=== PATIENT | male | born 1950 | race Caucasian/White ===

== ENCOUNTER 2016-08-23 09:56 | Emergency (ER) | payer OTHER ==
--- NOTE | 2016-08-23 11:23 | DIAGNOSTIC IMAGING REPORT ---
PROCEDURE: XR CHEST 1 VIEW INDICATION: CHEST PAIN TECHNIQUE: Portable AP view 11:15 a.m. COMPARISON: None. FINDINGS: Poor inspiration but lungs are clear. Borderline cardiomegaly. Mediastinum and pulmonary vessels are normal. Thorax is normal. IMPRESSION: 1. Poor inspiration 2. Borderline cardiomegaly.
--- NOTE | 2016-08-23 12:08 | ED ORDER SUMMARY ---
..... Patient: JUAN LUIS FERNANDEZ OrderSheet [facility] VisitID: [id number] [place] [address] 65y, M Registration Date/Time: 08/23/2016 ORDER SHEET Weight: 120.6 kg (stated) Allergies: No Known Drug Allergy GENERAL ORDERS: Chest 1V Urgent (10:16 08/23/2016 Cyndi Mosher) (Ack 10:27 Shashi) (11:41 DDean R.N.) Cardiac Panel Stat (10:08/23/2016 Cyndi Mosher) (Ack 10:27 Shashi) (10:47 DDean R.N.) BNP Urgent (10:08/23/2016 Cyndi Mosher) (Ack 10:27 Shashi) (10:47 DDean R.N.) D-Dimer Urgent (10:08/23/2016 Cyndi Mosher) (Ack 10:27 Shashi) (10:47 DDean R.N.) UA-Culture if indicated Urgent (10:08/23/2016 Cyndi Mosher) (Ack 10:27 Shashi) (Cancelled: Unable to Vkfkqsf20:07 DDean R.N.) TSH Urgent (10:08/23/2016 Cyndi Mosher) (Ack 10:27 Shashi) (10:47 DDean R.N.) EKG - ER Stat (10:08/23/2016 Cyndi Mosher) (Ack 10:27 Shashi) (10:37 RKaruga) MEDICATION ORDERS: Saline Lock (Solution 0.9 %) 10 mL Syringe (NOW) (15:02 08/23/2016 DDean R.N. per protocol) (15:06 DDean R.N.) IV FLUIDS: IV NS : initial bolus none -, then 1000 mL/hr for X1 (NOW) (10:15 08/23/2016 Cyndi Mosher) (Ack 10:27 DDean R.N.) (Cancelled: Other15:01 DDean R.N.) ORDER SHEET NOTES: [Electronically signed by Jillian Avila R.N. (15:07 08/23/2016)] [Electronically signed by Stanley Barlow Dr. (22:11 08/23/2016)] [Electronically locked/signed by Jillian Avila R.N. (15:07 08/23/2016)]
--- NOTE | 2016-08-23 12:08 | ED NURSING NOTES ---
Clinical Report - Nurses [facility] [address] [place] [address] 08/23/2016 10:00 Patient: JUAN LUIS FERNANDEZ TRIAGE Triage time 1012. Acuity: LEVEL 3. Chief Complaint: (pt in with irregular heart rate onset last night. denies SOB or chest pain with this. Denies dizziness). 10:12. --10:24 Jillian Avila R.N. 10:12 08/23/16. BP: 115/85. HR: 70. RR: 16. O2 saturation: 97% on room air. Temp: 98.2 F. Pain level now: 010. --10:24 Jillian Avila R.N. Weight: 120.6 kg stated. Height/Length: 76 inches Per Patient. BMI: 32.4. --10:18 Jillian Avila R.N. Medications Dustasteriot 0.5mg daily . --10:22 Jillian Avila R.N. Losartan Potassium Oral 25 mg, daily. Metoprolol Succinate ER Oral 50mg daily. Simvastatin Oral 40 mg, daily. --10:22 Jillian Avila R.N. Allergies No Known Drug Allergy. --10:20 Jillian Avila R.N. History Arrived by private vehicle. Historian: patient. Unaccompanied. This started last night. PAST MEDICAL HX: Hypertension. ( asthma in the 1970's). 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 SOCIAL HX: Never smoker. No alcohol use or drug use. --10:24 Jillian Avila R.N. Interventions ID band on patient. To treatment room. --10:24 Jillian Avila R.N. PHYSICAL ASSESSMENT 10:12. Ambulatory to room. Patient gowned. GENERAL / NEURO / PSYCH: Alert. Oriented X 4. Appears in no acute distress. HEENT: Mucous membranes are pink. RESPIRATORY: Respirations not labored. Chest nontender. CVS: Capillary refill less than 2 seconds. GI / : Abdomen soft. SKIN: Skin is warm and dry. --10:26 Jillian Avila R.N. NURSING PROGRESS NOTES 10:12. Oxygen administered. Monitoring of patient in place. Patient gowned. Head of bed elevated. Reassurance given. Patient identifiers checked. Call light placed in reach. Side rails up. Bed placed in lowest position. Patient ready for evaluation- chart flagged. --10:25 Jillian Avila R.N. 10:25. EKG time: (1025). EKG was ordered, performed by a tech and shown to the ED physician. done by RT. --10:26 Jillian Avila R.N. 10:32 08/23/2016 Site #1 started via IV in the right antecubital space with an 20g angiocath, with aseptic technique and good blood return; one attempt. Blood drawn: rainbow set. Labeled in the presence of the patient and sent to the lab. Saline lock flushed with 10 mL saline. --10:46 Jillian Avila R.N. 10:32. ( IV start and blood draw. Pt in no distress. declined blanket). --10:47 Jillian Avila R.N. <<STRICKEN ENTRY-- 10:32 08/23/2016 Started bag #1 1000 mL IV Fluids IV NS (Saline); at 1000 mL/hr over 1 hour(s) via site #1 via IV pump. --10:47 Jillian Avila R.N. --END STRIKE>> Other. --15:01 Jillian Avila R.N. 10:35 08/23/16. BP: 118/94. HR: 62. RR: 16. O2 saturation: 96% on nasal cannula at 2 liters/minute. Temp: deferred. Pain level now: 0/10. Additional comments: pt in no distress, waiting for lab resultsa. --11:35 Jillian Avila R.N. 11:10 08/23/16. BP: 135/79. HR: 64. RR: 18. O2 saturation: 95%. Temp: deferred. Pain level now: 0/10. Additional comments: pt getting anxious for lab results. declined po fluids. . --11:37 Jillian Avila R.N. 11:20. Portable chest x-ray ordered, performed and shown to the ED physician. --11:41 Jillian Avila R.N. 10:32 08/23/2016 saline lock placed at right AC with #20 angio, with 10cc NS flush * IV 10ml --15:05 Jillian Avila R.N. 12:10 08/23/2016 Site #1 removed upon discharge. Pressure dressing applied. --14:59 Jillian Avila R.N. 12:10 08/23/2016 Saline lock placed at right AC with #20 angio, with 10cc NS flush IV Discontinued: STOPPED upon discharge. --15:06 Jillian Avila R.N. DISPOSITION / DISCHARGE 12:20. Condition at departure: improved and stable. No learning barriers present. Discharge instructions provided and reviewed with the patient. Reviewed referral to a recreation supervisor. Patient verbalized understanding. Written instructions provided in Nepali. The patient was discharged home and unaccompanied at time of discharge. He left the Emergency Department ambulatory and via private vehicle. Patient driving. --14:58 Jillian Avila R.N. 12:20 08/23/16. BP: 121/69. HR: 62. RR: 18. O2 saturation: 99%. Temp: deferred. Pain level now: 0/10. --14:58 Jillian Avila R.N. Locked/Released at 08/23/2016 15:07 by Jillian Avila R.N.
--- NOTE | 2016-08-23 12:08 | ED CLINICAL REPORT ---
Clinical Report - Physicians/Mid Levels [facility] [address] [place] [address] 08/23/2016 10:00 [id number] Time Seen: 10:08; initial patient contact. Arrived- By private vehicle. Historian- patient. HISTORY OF PRESENT ILLNESS Chief Complaint: PALPITATIONS. This started yesterday and is now gone. Onset during rest. No history of caffeine use prior to onset, decongestants use prior to onset, cocaine use prior to onset or amphetamine use prior to onset. It was gradual in onset. It is described as an irregular heart beat and missing beats. Modifying factors. Not worsened by anything. Not relieved by anything. No chest pain, difficulty breathing, sweating episodes or dizziness. He has had chest discomfort. Similar symptoms previously: None. Recent medical care: The patient was seen recently in a clinic. REVIEW OF SYSTEMS No fever, chills, cough, orthopnea or calf pain. No nausea. All systems otherwise negative, except as recorded above. PAST HISTORY HTN. Medications: Losartan Potassium Oral 25 mg, daily. Metoprolol Succinate ER Oral 50mg daily. Simvastatin Oral 40 mg, daily. Dustasteriot 0.5mg daily . Allergies: No Known Drug Allergy. SOCIAL HISTORY Never smoker. No alcohol use or drug use. ADDITIONAL NOTES The nursing notes have been reviewed. PHYSICAL EXAM Vital Signs: 08/23/2016 10:12 BP: 115/85. HR: 70. RR: 16. O2 saturation: 97%. Temp: 98.2 F. Pain level now: 0/10. Have been reviewed as normal. Appearance: Alert. Oriented X3. No acute distress. Eyes: Eyes normal inspection. ENT: Pharynx normal. Neck: Normal inspection. CVS: Normal heart rate and rhythm. Heart sounds normal. Respiratory: No respiratory distress. Breath sounds normal. Abdomen: Soft and nontender. Bowel sounds normal. No organomegaly. No mass. Skin: Skin warm and dry. Normal skin color. Extremities: No calf tenderness. No lower extremity edema. Neuro: Oriented X 3. LABS, X-RAYS, AND EKG EKG: EKG time: (1025). Normal sinus rhythm. Rate: 63. Normal P waves. First-degree atrioventricular block. Normal QRS complex. Incomplete RBBB. Normal axis. Normal QT and QTc. Mild T wave inversion in lead V1. Prior EKG unavailable. The study has been interpreted contemporaneously by me. The study has been independently viewed by me. The EKG appears to be a good tracing. I agree with and confirm the computer reading of the EKG. Interpretation time: 1025. Chest X-ray: No acute disease. Mild cardiomegaly. No evidence of vascular congestion. Normal lung markings present. No infiltrate. Views: AP. Technique: good. The X-rays were independently viewed by me and interpreted contemporaneously by me. Prior films were not available for comparison. Laboratory Tests: CBC w Diff: (ARNULFO: 08/23/2016 10:32) ( MsgRcvd 08/23/2016 10:54) Final results Test Result Flag Units (Reference) WHITE BLOOD COUNT 6.3 K/uL (4.5-11.5) RED BLOOD COUNT 5.72 M/uL (4.50-5.90) HEMOGLOBIN 16.6 gm/dL (13.5-17.5) HEMATOCRIT 49.1 % (41.0-53.0) MEAN CELL VOLUME 86 fL (80-100) MEAN CORPUSCULAR HGB 29 pg (26-34) MEAN CORPUSCULAR HGB CONC 34 g/dL (31-37) RED CELL DISTRIBUTION WIDTH 13.5 % (11.6-14.8) PLATELET COUNT 218 K/uL (150-400) NEUTROPHIL % 63.7 % (50-75) LYMPH % 20.9 L % (25-40) MONO % 10.3 % (3-14) EOSINOPHIL % 4.3 H % (0-4) BASOPHIL % 0.8 % (0-2) [id number]: (ARNULFO: 08/23/2016 10:32) ( MsgRcvd 08/23/2016 11:00) Final results Test Result Flag Units (Reference) D-DIMER QUANTITATIVE < 0.27 L ug/mLFEU (0.27-0.52) The primary value of this quantitative assay relates toits negative predictive value (i.e. exclusion) of pulmonaryembolism/deep vein thrombosis/DIC.Elevated levels of d-dimer may also occur with:, age, cancer, inflammation, liver disease,post-op, infection, hematoma, coronary disease, peripheralarteriopathy, bleeding disorders and thrombolytic treatment.Results should be correlated with other clinical andradiological data.Testing Methodology: Latex Immunoassay BNP: (ARNULFO: 08/23/2016 10:32) ( [facility] 08/23/2016 11:12) Final results Test Result Flag Units (Reference) B-TYPE NATRIURETIC PEPTIDE 28.3 pg/ml (5-100) TSH: (ARNULFO: 08/23/2016 10:32) ( [facility] 08/23/2016 11:19) Final results Test Result Flag Units (Reference) THYROID STIMULATING HORMONE 1.825 uIU/mL (0.30-3.74) CHEM 13 PANEL: (ARNULFO: 08/23/2016 10:32) ( [facility] 08/23/2016 11:18) Final results Test Result Flag Units (Reference) GLUCOSE 110 mg/dL (70-110) BUN 19 H mg/dL (7-18) CREATININE 0.8 mg/dL (0.6-1.3) Estimated GFR >60 mL/min Estimated GFR- >60 mL/min Note: Persistent reduction over 3 months in eGFR<60 mL/min/1.73 m2 defines CKD. Patients with eGFR values>=60 mL/min/1.73 m2 may also have CKD if evidence ofpersistent proteinuria. Additional information may be foundat www.kidney.org. SODIUM 140 mmol/L (136-145) POTASSIUM 4.2 mmol/L (3.5-5.1) CHLORIDE 103 mmol/L (98-107) CARBON DIOXIDE 25 mmol/L (21-32) CALCIUM 9.1 mg/dL (8.5-10.1) TOTAL PROTEIN 7.8 g/dL (6.4-8.2) ALBUMIN 4.1 g/dL (3.3-5.0) BILIRUBIN, TOTAL 0.6 mg/dL (0.0-1.0) ALKALINE PHOSPHATASE 53 U/L (46-116) AST (SGOT) 22 U/L (15-37) ALT (SGPT) 46 U/L (12-78) CPK 73 U/L (24-260) MAGNESIUM 2.2 mg/dL (1.8-2.4) TROPONIN I <0.05 ng/mL (0.00-1.5) TROPONIN REFERENCE RANGE:<0.1 NEGATIVE0.1-1.5 INDETERMINANT>1.5 POSITIVE . PROGRESS AND PROCEDURES Disposition: Discharged home in good and improved condition. Condition: good. CLINICAL IMPRESSION Occasional PVC's. (1st Degree block). INSTRUCTIONS No strenuous activity until released. Avoid stimulants (such as cigarettes, coffee, cold medicines, sinus medicines, street drugs). Follow a low salt diet. Your Current Medications: CONTINUE TAKING THE FOLLOWING MEDICATIONS: Dustasteriot 0.5mg daily *. Losartan Potassium Oral : 25 mg daily. Metoprolol Succinate ER Oral : 50mg daily. Simvastatin Oral : 40 mg daily. Follow-up: Blood pressure screening was not performed during this visit because the patient has an active diagnosis of hypertension. Follow-up with: Chuck Monet MD, Cardiology, , [facility], [address] [place] [address], [facility] [address], [place] [address] Follow up in about three days. Call for an appointment. (Electronically signed by Stanley Barlow Dr. 08/23/2016 22:11)
--- NOTE | 2016-08-23 12:08 | ED CLINICAL REPORT ---
Clinical Report - Physicians/Mid Levels [facility] [address] [place] [address] 08/23/2016 10:00 [id number] Time Seen: 10:08; initial patient contact. Arrived- By private vehicle. Historian- patient. HISTORY OF PRESENT ILLNESS Chief Complaint: PALPITATIONS. This started yesterday and is now gone. Onset during rest. No history of caffeine use prior to onset, decongestants use prior to onset, cocaine use prior to onset or amphetamine use prior to onset. It was gradual in onset. It is described as an irregular heart beat and missing beats. Modifying factors. Not worsened by anything. Not relieved by anything. No chest pain, difficulty breathing, sweating episodes or dizziness. He has had chest discomfort. Similar symptoms previously: None. Recent medical care: The patient was seen recently in a clinic. REVIEW OF SYSTEMS No fever, chills, cough, orthopnea or calf pain. No nausea. All systems otherwise negative, except as recorded above. PAST HISTORY HTN. Medications: Losartan Potassium Oral 25 mg, daily. Metoprolol Succinate ER Oral 50mg daily. Simvastatin Oral 40 mg, daily. Dustasteriot 0.5mg daily . Allergies: No Known Drug Allergy. SOCIAL HISTORY Never smoker. No alcohol use or drug use. ADDITIONAL NOTES The nursing notes have been reviewed. PHYSICAL EXAM Vital Signs: 08/23/2016 10:12 BP: 115/85. HR: 70. RR: 16. O2 saturation: 97%. Temp: 98.2 F. Pain level now: 0/10. Have been reviewed as normal. Appearance: Alert. Oriented X3. No acute distress. Eyes: Eyes normal inspection. ENT: Pharynx normal. Neck: Normal inspection. CVS: Normal heart rate and rhythm. Heart sounds normal. Respiratory: No respiratory distress. Breath sounds normal. Abdomen: Soft and nontender. Bowel sounds normal. No organomegaly. No mass. Skin: Skin warm and dry. Normal skin color. Extremities: No calf tenderness. No lower extremity edema. Neuro: Oriented X 3. LABS, X-RAYS, AND EKG EKG: EKG time: (1025). Normal sinus rhythm. Rate: 63. Normal P waves. First-degree atrioventricular block. Normal QRS complex. Incomplete RBBB. Normal axis. Normal QT and QTc. Mild T wave inversion in lead V1. Prior EKG unavailable. The study has been interpreted contemporaneously by me. The study has been independently viewed by me. The EKG appears to be a good tracing. I agree with and confirm the computer reading of the EKG. Interpretation time: 1025. Chest X-ray: No acute disease. Mild cardiomegaly. No evidence of vascular congestion. Normal lung markings present. No infiltrate. Views: AP. Technique: good. The X-rays were independently viewed by me and interpreted contemporaneously by me. Prior films were not available for comparison. Laboratory Tests: CBC w Diff: (ARNULFO: 08/23/2016 10:32) ( MsgRcvd 08/23/2016 10:54) Final results Test Result Flag Units (Reference) WHITE BLOOD COUNT 6.3 K/uL (4.5-11.5) RED BLOOD COUNT 5.72 M/uL (4.50-5.90) HEMOGLOBIN 16.6 gm/dL (13.5-17.5) HEMATOCRIT 49.1 % (41.0-53.0) MEAN CELL VOLUME 86 fL (80-100) MEAN CORPUSCULAR HGB 29 pg (26-34) MEAN CORPUSCULAR HGB CONC 34 g/dL (31-37) RED CELL DISTRIBUTION WIDTH 13.5 % (11.6-14.8) PLATELET COUNT 218 K/uL (150-400) NEUTROPHIL % 63.7 % (50-75) LYMPH % 20.9 L % (25-40) MONO % 10.3 % (3-14) EOSINOPHIL % 4.3 H % (0-4) BASOPHIL % 0.8 % (0-2) [id number]: (ARNULFO: 08/23/2016 10:32) ( MsgRcvd 08/23/2016 11:00) Final results Test Result Flag Units (Reference) D-DIMER QUANTITATIVE < 0.27 L ug/mLFEU (0.27-0.52) The primary value of this quantitative assay relates toits negative predictive value (i.e. exclusion) of pulmonaryembolism/deep vein thrombosis/DIC.Elevated levels of d-dimer may also occur with:, age, cancer, inflammation, liver disease,post-op, infection, hematoma, coronary disease, peripheralarteriopathy, bleeding disorders and thrombolytic treatment.Results should be correlated with other clinical andradiological data.Testing Methodology: Latex Immunoassay BNP: (ARNULFO: 08/23/2016 10:32) ( [facility] 08/23/2016 11:12) Final results Test Result Flag Units (Reference) B-TYPE NATRIURETIC PEPTIDE 28.3 pg/ml (5-100) TSH: (ARNULFO: 08/23/2016 10:32) ( [facility] 08/23/2016 11:19) Final results Test Result Flag Units (Reference) THYROID STIMULATING HORMONE 1.825 uIU/mL (0.30-3.74) CHEM 13 PANEL: (ARNULFO: 08/23/2016 10:32) ( [facility] 08/23/2016 11:18) Final results Test Result Flag Units (Reference) GLUCOSE 110 mg/dL (70-110) BUN 19 H mg/dL (7-18) CREATININE 0.8 mg/dL (0.6-1.3) Estimated GFR >60 mL/min Estimated GFR- >60 mL/min Note: Persistent reduction over 3 months in eGFR<60 mL/min/1.73 m2 defines CKD. Patients with eGFR values>=60 mL/min/1.73 m2 may also have CKD if evidence ofpersistent proteinuria. Additional information may be foundat www.kidney.org. SODIUM 140 mmol/L (136-145) POTASSIUM 4.2 mmol/L (3.5-5.1) CHLORIDE 103 mmol/L (98-107) CARBON DIOXIDE 25 mmol/L (21-32) CALCIUM 9.1 mg/dL (8.5-10.1) TOTAL PROTEIN 7.8 g/dL (6.4-8.2) ALBUMIN 4.1 g/dL (3.3-5.0) BILIRUBIN, TOTAL 0.6 mg/dL (0.0-1.0) ALKALINE PHOSPHATASE 53 U/L (46-116) AST (SGOT) 22 U/L (15-37) ALT (SGPT) 46 U/L (12-78) CPK 73 U/L (24-260) MAGNESIUM 2.2 mg/dL (1.8-2.4) TROPONIN I <0.05 ng/mL (0.00-1.5) TROPONIN REFERENCE RANGE:<0.1 NEGATIVE0.1-1.5 INDETERMINANT>1.5 POSITIVE . PROGRESS AND PROCEDURES Disposition: Discharged home in good and improved condition. Condition: good. CLINICAL IMPRESSION Occasional PVC's. (1st Degree block). INSTRUCTIONS No strenuous activity until released. Avoid stimulants (such as cigarettes, coffee, cold medicines, sinus medicines, street drugs). Follow a low salt diet. Your Current Medications: CONTINUE TAKING THE FOLLOWING MEDICATIONS: Dustasteriot 0.5mg daily *. Losartan Potassium Oral : 25 mg daily. Metoprolol Succinate ER Oral : 50mg daily. Simvastatin Oral : 40 mg daily. Follow-up: Blood pressure screening was not performed during this visit because the patient has an active diagnosis of hypertension. Follow-up with: Chuck Monet MD, Cardiology, , [facility], [address] [place] [address], [facility] [address], [place] [address] Follow up in about three days. Call for an appointment. (Electronically signed by Stanley Barlow Dr. 08/23/2016 22:11)
--- NOTE | 2016-08-23 12:08 | ED ORDER SUMMARY ---
..... Patient: JUAN LUIS FERNANDEZ OrderSheet [facility] VisitID: [id number] [place] [address] 65y, M Registration Date/Time: 08/23/2016 ORDER SHEET Weight: 120.6 kg (stated) Allergies: No Known Drug Allergy GENERAL ORDERS: Chest 1V Urgent (10:16 08/23/2016 Cyndi Mosher) (Ack 10:27 Shashi) (11:41 DDean R.N.) Cardiac Panel Stat (10:08/23/2016 Cyndi Mosher) (Ack 10:27 Shashi) (10:47 DDean R.N.) BNP Urgent (10:08/23/2016 Cyndi Mosher) (Ack 10:27 Shashi) (10:47 DDean R.N.) D-Dimer Urgent (10:08/23/2016 Cyndi Mosher) (Ack 10:27 Shashi) (10:47 DDean R.N.) UA-Culture if indicated Urgent (10:08/23/2016 Cyndi Mosher) (Ack 10:27 Shashi) (Cancelled: Unable to [place]:07 DDean R.N.) TSH Urgent (10:08/23/2016 Cyndi Mosher) (Ack 10:27 Shashi) (10:47 DDean R.N.) EKG - ER Stat (10:08/23/2016 Cyndi Mosher) (Ack 10:27 Shashi) (10:37 RKaruga) MEDICATION ORDERS: Saline Lock (Solution 0.9 %) 10 mL Syringe (NOW) (15:02 08/23/2016 DDean R.N. per protocol) (15:06 DDean R.N.) IV FLUIDS: IV NS : initial bolus none -, then 1000 mL/hr for X1 (NOW) (10:15 08/23/2016 Cyndi Mosher) (Ack 10:27 DDean R.N.) (Cancelled: Other15:01 DDean R.N.) ORDER SHEET NOTES: [Electronically signed by Jillian Avila R.N. (15:07 08/23/2016)] [Electronically signed by Stanley Barlow Dr. (22:11 08/23/2016)] [Electronically locked/signed by Jillian Avila R.N. (15:07 08/23/2016)]
--- NOTE | 2016-08-23 22:11 | ED MAR SUMMARY ---
..... Medication Administration Record [facility] [address] [place] [address] Patient: JUAN LUIS FERNANDEZ Visit ID: [id number] 65y, M Weight: 120.6 kg Height/Length: 76 in BMI: 32.4 ALLERGIES: No Known Drug Allergy Start 10:32 08/23/2016 Jillian Avila R.N., Stop 12:10 08/23/2016 Jillian Avila R.N. Medication Administered: saline lock placed at right AC with #20 angio, with 10cc NS flush *, Dose: 10ml * IV. Medication Ordered: Saline Lock (Solution 0.9 %) 10 mL Syringe (NOW).
--- NOTE | 2016-08-23 22:11 | ED MAR SUMMARY ---
..... Medication Administration Record [facility] [address] [place] [address] Patient: JUAN LUIS FERNANDEZ Visit ID: [id number] 65y, M Weight: 120.6 kg Height/Length: 76 in BMI: 32.4 ALLERGIES: No Known Drug Allergy Start 10:32 08/23/2016 Jillian Avila R.N., Stop 12:10 08/23/2016 Jillian Avila R.N. Medication Administered: saline lock placed at right AC with #20 angio, with 10cc NS flush *, Dose: 10ml * IV. Medication Ordered: Saline Lock (Solution 0.9 %) 10 mL Syringe (NOW).
--- NOTE | 2016-08-23 22:11 | ED DISCHARGE INSTRUCTIONS ---
Patient: JUAN LUIS FERNANDEZ General Instructions [facility] VisitID: [id number] [place] [address] 65y, M Registration Date/Time: 08/23/2016 Occasional PVC's. (1st Degree block). INSTRUCTIONS No strenuous activity until released. Avoid stimulants (such as cigarettes, coffee, cold medicines, sinus medicines, street drugs). Follow a low salt diet. Your Current Medications: CONTINUE TAKING THE FOLLOWING MEDICATIONS: Dustasteriot 0.5mg daily *. Losartan Potassium Oral : 25 mg daily. Metoprolol Succinate ER Oral : 50mg daily. Simvastatin Oral : 40 mg daily. Follow-up: Blood pressure screening was not performed during this visit because the patient has an active diagnosis of hypertension. Follow-up with: Chuck Monet MD, Cardiology, [phone], [address], [place] [address] Follow up in about three days. Call for an appointment. ADDITIONAL INFORMATION Heart Palpitations Palpitations refers to the feeling that your heart is beating hard, fast or irregular. Some people describe it as "pounding" or "skipped beats". Palpitations may occur in persons with heart disease, but can also occur in healthy persons. Heart-Related Causes: Arrhythmia (a change from the heart's normal rhythm) Disease of the heart valves Jzn-Otvcq-Ziwsceb Causes: Certain medicines (such as asthma inhalers and decongestants) Some herbal supplements, energy drinks and pills, and weight loss pills Illegal stimulant drugs (such as cocaine, crank, methamphetamine, PCP) Caffeine, alcohol and tobacco Medical conditions such as thyroid disease, anemia, anxiety and panic disorder Sometimes the cause cannot be found. Home Care: Avoid excess caffeine, alcohol, tobacco and any stimulant drugs. Tell your doctor about any prescription or rylr-pzx-xrctsio or herbal medicines you take. Follow Up with your doctor or as advised by our staff. Get Prompt Medical Attention if any of the following occur together with palpitations: Weakness, dizziness, light-headed or fainting Chest pain or shortness of breath Rapid heart rate (over 120 beats per minute, at rest) Palpitations that lasts over 20 minutes Weakness of an arm or leg or one side of the face Difficulty with speech or vision Low-Salt Diet (2 Grams/Day) This diet eliminates foods that are high in salt and restricts the amount of salt that you cook with. It is most often used for patients with high blood pressure, edema (fluid retention), kidney, liver, and heart disease. Table salt contains the mineral sodium. The body needs sodium to work normally. But too much sodium can make your health problems worse. Your healthcare provider is recommending a low-salt (also called low-sodium) diet for you. Your total daily allowance of salt (sodium) is 2 grams. This equals 2,000 milligrams (mg). It is less than 1 teaspoon of table salt. This means you can have only about 700 mg of sodium at each meal. When you cook, limit the salt you use. And if you can avoid using salt, even better. Do not add salt at the table. So, throw away the saltshaker! When shopping, read the package labels. Salt is often called sodium on the label. Choose foods that are Salt-Free, Low Salt, or Very Low Salt. Note that foods with Reduced Salt may notlower your salt intake enough. Beverages OK: Tea, coffee, carbonated beverages, juices AVOID: Flavored international coffees, electrolyte replacement drinks, sports beverages Bread & Cereals OK: All regular bread, rolls, cereals, cakes; low-salt crackers, matzoh crackers AVOID: Salted crackers, pretzels, popcorn; irish toast, pancakes, muffins Fruits & Desserts OK: Ice cream, frozen yogurt, juice bars, gelatin (Jell-O), cookies and pies, sugar, honey, jelly, hard candy AVOID: Most pies, cakes and cookies prepared or processed with salt, instant pudding Meats OK: All fresh meat, fish, poultry, low-salt tuna AVOID: Smoked, pickled, brine-cured, or salted meats or fish. Thisincludes gates, chipped beef, corned beef, hot dogs, luncheon meats, ham, kosher meats, salt pork, sausage, canned tuna, salted codfish, smokedsalmon, fontanez, sardines, or anchovies. Dairy OK: Milk, chocolate milk, hot chocolate mix; eggs, Low Salt cheeses, yogurt, egg substitute AVOID: Processed cheese, cheese spreads, Roquefort, Camembert, and cottage cheese, buttermilk, instant breakfast drink Beans, Potatoes & Pasta OK: Dry beans, split peas, lentils, potatoes, rice, macaroni, noodles, spaghetti without added salt AVOID: Potato chips, tortilla chips, and similar products Soups OK: Low-salt soups and broths made with allowed foods AVOID: Bouillon cubes, soups with smoked or salted meats, regular soup and broth Vegetables OK: Most are okay; low-salt tomato and vegetable juices AVOID: Sauerkraut and other brine-soaked vegetables, pickles and other pickled vegetables, tomato juice, olives Seasoning & Spices OK: Most seasonings are okay. Good substitutes for salt include: fresh herb blends, Tabasco, lemon, garlic, hager, vinegar, dry mustard, parsley, cilantro, horseradish, tomato paste, regular margarine, mayonnaise, butter, cream cheese, vegetable oil, cream, low-salt salad dressing and gravy AVOID: Regular ketchup, relishes, pickles, soy sauce, teriyaki sauce, Worcestershire sauce, BBQ sauce, tartar sauce, meat tenderizer, chili sauce, regular gravy, regular salad dressing You have been given the following additional information: Palpitations Diet, Low Salt (2Gm) No strenuous activity until released. (Electronically signed by Stanley Barlow Dr. 08/23/2016 22:11)
--- NOTE | 2016-08-23 22:11 | ED MED RECONCILIATION SUMMARY ---
Patient: JUAN LUIS FERNANDEZ Medication Reconciliation Report [facility] VisitID: [id number] [address] [place] [address] 65y, M Registration Date/Time: 08/23/2016 Weight: 120.6 kg Height/Length: 76 in. BMI: 32.4 ALLERGIES: No Known Drug Allergy The patient's Home Medications are listed below: CONTINUE TAKING THE FOLLOWING MEDICATIONS: Dustasteriot 0.5mg daily Losartan Potassium Oral 25 mg, daily Metoprolol Succinate ER Oral 50mg daily Simvastatin Oral 40 mg, daily The source(s) of the original Home Medication information: Not obtained. The following Medications were given to the patient in the Emergency Department: saline lock placed at right AC with #20 angio, with 10cc NS flush IV bolus 0, then 10ml, administered: 08/23/2016 10:32:00 AM The following Medications were prescribed to the patient: None.
--- NOTE | 2016-08-23 22:11 | ED MED RECONCILIATION SUMMARY ---
Patient: JUAN LUIS FERNANDEZ Medication Reconciliation Report [facility] VisitID: [id number] [address] [place] [address] 65y, M Registration Date/Time: 08/23/2016 Weight: 120.6 kg Height/Length: 76 in. BMI: 32.4 ALLERGIES: No Known Drug Allergy The patient's Home Medications are listed below: CONTINUE TAKING THE FOLLOWING MEDICATIONS: Dustasteriot 0.5mg daily Losartan Potassium Oral 25 mg, daily Metoprolol Succinate ER Oral 50mg daily Simvastatin Oral 40 mg, daily The source(s) of the original Home Medication information: Not obtained. The following Medications were given to the patient in the Emergency Department: saline lock placed at right AC with #20 angio, with 10cc NS flush IV bolus 0, then 10ml, administered: 08/23/2016 10:32:00 AM The following Medications were prescribed to the patient: None.
--- NOTE | 2016-08-23 22:11 | ED DISCHARGE INSTRUCTIONS ---
Patient: JUAN LUIS FERNANDEZ General Instructions [facility] VisitID: [id number] [place] [address] 65y, M Registration Date/Time: 08/23/2016 Occasional PVC's. (1st Degree block). INSTRUCTIONS No strenuous activity until released. Avoid stimulants (such as cigarettes, coffee, cold medicines, sinus medicines, street drugs). Follow a low salt diet. Your Current Medications: CONTINUE TAKING THE FOLLOWING MEDICATIONS: Dustasteriot 0.5mg daily *. Losartan Potassium Oral : 25 mg daily. Metoprolol Succinate ER Oral : 50mg daily. Simvastatin Oral : 40 mg daily. Follow-up: Blood pressure screening was not performed during this visit because the patient has an active diagnosis of hypertension. Follow-up with: Chuck Monet MD, Cardiology, [phone], [address], [place] [address] Follow up in about three days. Call for an appointment. ADDITIONAL INFORMATION Heart Palpitations Palpitations refers to the feeling that your heart is beating hard, fast or irregular. Some people describe it as "pounding" or "skipped beats". Palpitations may occur in persons with heart disease, but can also occur in healthy persons. Heart-Related Causes: Arrhythmia (a change from the heart's normal rhythm) Disease of the heart valves Fxj-Fchfk-Qzexirc Causes: Certain medicines (such as asthma inhalers and decongestants) Some herbal supplements, energy drinks and pills, and weight loss pills Illegal stimulant drugs (such as cocaine, crank, methamphetamine, PCP) Caffeine, alcohol and tobacco Medical conditions such as thyroid disease, anemia, anxiety and panic disorder Sometimes the cause cannot be found. Home Care: Avoid excess caffeine, alcohol, tobacco and any stimulant drugs. Tell your doctor about any prescription or slnf-tpd-tjrjxos or herbal medicines you take. Follow Up with your doctor or as advised by our staff. Get Prompt Medical Attention if any of the following occur together with palpitations: Weakness, dizziness, light-headed or fainting Chest pain or shortness of breath Rapid heart rate (over 120 beats per minute, at rest) Palpitations that lasts over 20 minutes Weakness of an arm or leg or one side of the face Difficulty with speech or vision Low-Salt Diet (2 Grams/Day) This diet eliminates foods that are high in salt and restricts the amount of salt that you cook with. It is most often used for patients with high blood pressure, edema (fluid retention), kidney, liver, and heart disease. Table salt contains the mineral sodium. The body needs sodium to work normally. But too much sodium can make your health problems worse. Your healthcare provider is recommending a low-salt (also called low-sodium) diet for you. Your total daily allowance of salt (sodium) is 2 grams. This equals 2,000 milligrams (mg). It is less than 1 teaspoon of table salt. This means you can have only about 700 mg of sodium at each meal. When you cook, limit the salt you use. And if you can avoid using salt, even better. Do not add salt at the table. So, throw away the saltshaker! When shopping, read the package labels. Salt is often called sodium on the label. Choose foods that are Salt-Free, Low Salt, or Very Low Salt. Note that foods with Reduced Salt may notlower your salt intake enough. Beverages OK: Tea, coffee, carbonated beverages, juices AVOID: Flavored international coffees, electrolyte replacement drinks, sports beverages Bread & Cereals OK: All regular bread, rolls, cereals, cakes; low-salt crackers, matzoh crackers AVOID: Salted crackers, pretzels, popcorn; setswana toast, pancakes, muffins Fruits & Desserts OK: Ice cream, frozen yogurt, juice bars, gelatin (Jell-O), cookies and pies, sugar, honey, jelly, hard candy AVOID: Most pies, cakes and cookies prepared or processed with salt, instant pudding Meats OK: All fresh meat, fish, poultry, low-salt tuna AVOID: Smoked, pickled, brine-cured, or salted meats or fish. Thisincludes gates, chipped beef, corned beef, hot dogs, luncheon meats, ham, kosher meats, salt pork, sausage, canned tuna, salted codfish, smokedsalmon, fontanez, sardines, or anchovies. Dairy OK: Milk, chocolate milk, hot chocolate mix; eggs, Low Salt cheeses, yogurt, egg substitute AVOID: Processed cheese, cheese spreads, Roquefort, Camembert, and cottage cheese, buttermilk, instant breakfast drink Beans, Potatoes & Pasta OK: Dry beans, split peas, lentils, potatoes, rice, macaroni, noodles, spaghetti without added salt AVOID: Potato chips, tortilla chips, and similar products Soups OK: Low-salt soups and broths made with allowed foods AVOID: Bouillon cubes, soups with smoked or salted meats, regular soup and broth Vegetables OK: Most are okay; low-salt tomato and vegetable juices AVOID: Sauerkraut and other brine-soaked vegetables, pickles and other pickled vegetables, tomato juice, olives Seasoning & Spices OK: Most seasonings are okay. Good substitutes for salt include: fresh herb blends, Tabasco, lemon, garlic, hager, vinegar, dry mustard, parsley, cilantro, horseradish, tomato paste, regular margarine, mayonnaise, butter, cream cheese, vegetable oil, cream, low-salt salad dressing and gravy AVOID: Regular ketchup, relishes, pickles, soy sauce, teriyaki sauce, Worcestershire sauce, BBQ sauce, tartar sauce, meat tenderizer, chili sauce, regular gravy, regular salad dressing You have been given the following additional information: Palpitations Diet, Low Salt (2Gm) No strenuous activity until released. (Electronically signed by Stanley Barlow Dr. 08/23/2016 22:11)
== END 2016-08-23 12:20 | disposition home or self-care (01) ==
LOC: ED SRH 09:56
DX: I49.3 Ventricular premature depolarization (principal); I44.0 Atrioventricular block, first degree; I10 Essential (primary) hypertension; Z79.899 Other long term (current) drug therapy
CPT/HCPCS: 90100; 90616; 91320; 91556; 92610; 92720; 93140; 95059